=== PATIENT | male | born 1985 | race Hispanic/Latino ===

== ENCOUNTER 2016-11-06 11:18 | Emergency (ER) | payer SELFPAY ==
[2016-11-06 11:36] VITALS: BP 152/100; PULSE 73; RESP 19; TEMP 98.7; O2SAT 100; BMI 27.7
[2016-11-06] MEDS ORDERED: Oxycodone/Acetaminophen 5/325 mg Tab PO STA (11:52)
--- NOTE | 2016-11-06 11:54 | ED PDOC ---
Arrival/HPI - General Historian: Patient - General Chief Complaint: Abnormal Skin Integrity Time Seen by Provider: 11/06/16 11:51 - History of Present Illness Narrative History of Present Illness (Text): 11/06/16 11:53 31 y/o male, no pmh, nkda, last tetanus under 4 years ago, penicillin allergy, c /o lt. hand laceration s/p working on the car and tear by the high force wrench x 2 hours. Pt. stated that he was working on his car which the wrench hit back on him, sustained the laceration, didn't have the glove on either, able to move the lt. hand 5 digits without difficulty, no fever or chills, no numbness or tingling, no dizziness, no other medical or psychological complaints. (Stevenson Lawrence) Past Medical History - Provider Review Nursing Documentation Reviewed: Yes - Infectious Disease Hx of Infectious Diseases: None - Integumentary Hx Dermatological Disorder: Yes Other/Comment: hx of staph infection - Musculoskeletal/Rheumatological Hx Falls: No - Psychiatric Hx Depression: No Hx Emotional Abuse: No Hx Physical Abuse: No Hx Substance Use: No - Surgical History Hx Pulmonary Surgery: No - Anesthesia Hx Anesthesia: No - Suicidal Assessment Feels Threatened In Home Enviroment: No Family/Social History - Physician Review Nursing Documentation Reviewed: Yes Family/Social History: Unknown Family HX Smoking Status: Heavy Smoker > 10 Cigarettes Daily Hx Alcohol Use: Yes Frequency of alcohol use: Socially Hx Substance Use: No Hx Substance Use Treatment: No Allergies/Home Meds Allergies/Adverse Reactions: Allergies Penicillins Allergy (Verified 11/06/16 11:36) ANAPHYLAXIS Review of Systems - Review of Systems Constitutional: absent: Fatigue, Fevers Eyes: absent: Vision Changes ENT: absent: Hearing Changes Respiratory: absent: SOB, Cough Cardiovascular: absent: Chest Pain Gastrointestinal: absent: Abdominal Pain, Nausea, Vomiting Musculoskeletal: absent: Arthralgias, Back Pain, Neck Pain Skin: Laceration. absent: Rash, Pruritis, Skin Lesions, Abscess, Ulcer, Other Neurological: absent: Dizziness, Gait Changes, Speech Changes Physical Exam Vital Signs Reviewed: Yes Temperature: Afebrile Blood Pressure: Hypertensive Pulse: Regular Respiratory Rate: Normal Appearance: Positive for: Well-Appearing, Non-Toxic Pain Distress: Severe Mental Status: Positive for: Alert and Oriented X 3 - Systems Exam Head: Present: Atraumatic, Normocephalic Pupils: Present: PERRL Extroacular Muscles: Present: EOMI Conjunctiva: Present: Normal Mouth: Present: Moist Mucous Membranes Neck: Present: Normal Range of Motion Respiratory/Chest: Present: Clear to Auscultation, Good Air Exchange. No: Respiratory Distress, Accessory Muscle Use Cardiovascular: Present: Regular Rate and Rhythm, Normal S1, S2. No: Murmurs Abdomen: Present: Normal Bowel Sounds. No: Tenderness, Distention, Peritoneal Signs Back: Present: Normal Inspection Upper Extremity: Present: Normal Inspection, Other (Lt. hand: visible approx. 5cm intermediate to deep depth laceration noted on the 1st and 2nd webspace noted with oozing, FROM without limitation, sensation intact, motor 5/5, + radial pulse, capillary refill< 2 seconds, neurovascular intact, able to touch the lt. hand thumb to 2nd to 5th digits, able to have Full flexion and extension on the lt. hand thumb and lt. wrist without limitation. ). No: Cyanosis, Edema Lower Extremity: Present: Normal Inspection. No: Edema Neurological: Present: GCS=15, CN II-XII Intact, Speech Normal Skin: Present: Warm, Dry, Normal Color. No: Rashes Psychiatric: Present: Alert, Oriented x 3, Normal Insight, Normal Concentration Vital Signs Temp Pulse Resp BP Pulse Ox 11/06/16 11:36 98.7 F 73 19 152/100 H 100 Medical Decision Making ED Course and Treatment: I was available for consultation during PA evaluation. The chart was reviewed by me, and I agree with disposition. The documented history was done by the physician rn otolaryngology. The documented physical exam was done by the physician rn otolaryngology. The documented procedures were done by the physician rn otolaryngology. (Wes Loera) 11/06/16 11:54 -clindamycin/percocet -Lt. hand xray 11/06/16 14:40 -Lt. hand xray show negative study. -sensation intact, motor 5/5, wound irrigate with 2000cc of normal saline, clean with betadine, 1% lidocaine injected locally with 1.5cc with sterile procedure, 5-0 vicryl made 10 sutures due to the cut is intemediate and deep after the wound explore, 5-0 nylon made 19 sutures with good approximation, hemostasis obtained, bacitracin and gauze dressing, sensation intact, motor 5/5. -Discharge home with clindamycin, motrin, bacitracin oinment, keep the dressing dry and clean, follow up with your own pmd and and hand specialist within 2 days , sutures need to be removed by day 12-13, avoid strenuous exercise or activity , return to the ER for any new or worsening signs or symptoms. (Stevenson Lawrence) - RAD Interpretation Radiology Orders: 11/06/16 11:52 HAND LEFT 3 VIEWS ROUTINE [RAD] Stat negative study (Stevenson Lawrence) - Medication Orders Current Medication Orders: Discontinued Medications Clindamycin HCl (Cleocin) 300 mg PO STAT STA PRN Reason: Protocol Stop: 11/06/16 11:54 Last Admin: 11/06/16 12:00 Dose: 300 mg Lidocaine HCl (Lidocaine 1% (20ml)) Confirm Administered Dose 20 ml .ROUTE .STK- MED ONE Stop: 11/06/16 14:09 Oxycodone/Acetaminophen (Percocet 5/325 Mg Tab) 1 tab PO STAT STA Stop: 11/06/16 11:53 Last Admin: 11/06/16 12:00 Dose: 1 tab - PA / CONTROLLER OPERATIONS AND HR MANAGER / Resident Statement / has reviewed & agrees with the documentation as recorded. Disposition/Present on Arrival - Present on Arrival Any Indicators Present on Arrival: No History of DVT/PE: No History of Uncontrolled Diabetes: No Urinary Catheter: No History of Decub. Ulcer: No History Surgical Site Infection Following: None - Disposition Have Diagnosis and Disposition been Completed?: Yes Disposition Time: 11:54 Patient Plan: Discharge - Disposition Diagnosis: Hand laceration Disposition: HOME/ ROUTINE Condition: IMPROVED Additional Instructions: Discharge home with clindamycin, motrin, bacitracin oinment, keep the dressing dry and clean, follow up with your own pmd and and hand specialist within 2 days , sutures need to be removed by day 12-13, avoid strenuous exercise or activity , return to the ER for any new or worsening signs or symptoms. Prescriptions: Bacitracin Ointment [Bacitracin] 1 appful TOP BID #15 g Clindamycin [Cleocin] 300 mg PO TID #30 cap Ibuprofen [Motrin Tab] 600 mg PO QID PRN #30 tab PRN Reason: Other Referrals: PCP,NO [Primary Care Provider] - Follow up with primary Natividad Pena MD [Non-Staff] - Follow up with primary [facility] [place] [Outside] - Follow up with primary Forms: WORK NOTE
[2016-11-06] MEDS ORDERED: Lidocaine 1% Inj (20ml) ONE (14:08)
--- NOTE | 2016-11-06 14:33 | RAD ---
PROCEDURE: Left Hand Radiographs. HISTORY: lt. hand laceration COMPARISON: None. FINDINGS: BONES: Normal. No fracture. JOINTS: Normal. No osteoarthritic changes. SOFT TISSUES: No evidence of foreign body OTHER FINDINGS: None. IMPRESSION: Negative study
== END 2016-11-06 15:05 | disposition home or self-care (01) ==
LOC: ED 11:18
DX: S61.412A Laceration without foreign body of left hand, initial encounter (principal); W22.8XXA Striking against or struck by other objects, initial encounter; Y93.89 Activity, other specified; Y92.89 Other specified places as the place of occurrence of the external cause

== ENCOUNTER 2016-11-20 11:22 | Emergency (ER) | payer SELFPAY ==
[2016-11-20 11:23] VITALS: BMI 27.7
[2016-11-20 12:05] VITALS: BP 119/73; PULSE 68; RESP 18; TEMP 98.4; O2SAT 98
--- NOTE | 2016-11-20 12:05 | ED PDOC ---
Arrival/HPI - General Chief Complaint: Suture/Staple Removal Time Seen by Provider: 11/20/16 12:04 Historian: Patient - History of Present Illness Narrative History of Present Illness (Text): 11/20/16 21:24 31-year-old male presents today for suture removal to the left hand. Patient states 2 weeks ago he was seen in the emergency room after sustaining a laceration to the web spacing between the first and second finger of the hand by a wrench. Patient states he had laceration repaired and now presents today for removal. He denies pain. Denies weakness or tingling in the extremity. Patient states he does have slight decreased sensation in the left thumb. Patient states he took clindamycin as an antibiotic when the incident happened. Patient states he is a smoker. No other complaints Time/Duration: Other (14 days ago) Symptom Onset: Sudden Symptom Course: Resolved Quality: Other (no pain) Past Medical History - Provider Review Nursing Documentation Reviewed: Yes - Travel History Have you recently traveled outside [place] w/in the past 3 mons?: No - Infectious Disease Hx of Infectious Diseases: None - Tetanus Immunization Tetanus Immunization: Up to Date - Integumentary Hx Dermatological Disorder: Yes Other/Comment: hx of staph infection - Musculoskeletal/Rheumatological Hx Falls: No - Psychiatric Hx Depression: No Hx Emotional Abuse: No Hx Physical Abuse: No Hx Substance Use: No - Surgical History Hx Pulmonary Surgery: No - Anesthesia Hx Anesthesia: No - Suicidal Assessment Feels Threatened In Home Enviroment: No Family/Social History - Physician Review Nursing Documentation Reviewed: Yes Family/Social History: Unknown Family HX Smoking Status: Heavy Smoker > 10 Cigarettes Daily Hx Alcohol Use: Yes Hx Substance Use: No Hx Substance Use Treatment: No Allergies/Home Meds Allergies/Adverse Reactions: Allergies Penicillins Allergy (Verified 11/06/16 11:36) ANAPHYLAXIS Review of Systems - Review of Systems Constitutional: absent: Fatigue, Fevers Respiratory: absent: SOB, Cough Cardiovascular: absent: Chest Pain, Palpitations Gastrointestinal: absent: Abdominal Pain Genitourinary Male: absent: Dysuria Musculoskeletal: absent: Arthralgias Skin: Laceration. absent: Cellulitis Neurological: absent: Headache, Dizziness Physical Exam Vital Signs Reviewed: Yes Vital Signs Temp Pulse Resp BP Pulse Ox 11/20/16 12:04 98.4 F 68 18 119/73 98 Temperature: Afebrile Blood Pressure: Normal Pulse: Regular Respiratory Rate: Normal Appearance: Positive for: Well-Appearing, Non-Toxic, Comfortable Pain Distress: None Mental Status: Positive for: Alert and Oriented X 3 - Systems Exam Head: Present: Atraumatic Respiratory/Chest: Present: Clear to Auscultation Cardiovascular: Present: Regular Rate and Rhythm Upper Extremity: Present: Normal ROM, NORMAL PULSES, Capillary Refill < 2s, Other (there are 6 interrupted sutures and a long running sutures between the webspacing of the left 1st and 2nd fingers extending into the palm; no surrounding erythema or edema. no tenderness. ). No: Tenderness, Swelling, Erythema, Deformity Neurological: Present: Speech Normal Skin: Present: Warm, Dry Psychiatric: Present: Alert, Oriented x 3 Medical Decision Making ED Course and Treatment: 11/20/16 patient is nontoxic well-appearing no distress with stable vital signs presenting for suture removal 4 of the interrupted sutures were removed, 2 on each side of the laceration. There was slight wound dehiscence. The running suture remains in place Case was discussed in depth with Dr. Rutledge surgeon who is in charge of the wound care center. He states that the patient can follow-up in the wound care center tomorrow. I spoke with the rn appeals at the wound care center as scheduled the patient an appointment for 10 AM tomorrow at the wound care center for further evaluation. My concern is that if I remove the running suture this entire wound will dehisce. I will cover the patient with Bactrim. I discussed the plan and depth with the patient I stressed the importance of follow-up with the wound care center tomorrow at 10 AM. I've advised immediate return if symptoms worsen persist or if new concerning symptoms develop Patient verbalizes understanding of discharge instructions and need for immediate followup. all aspects of this case were discussed the attending of record. Impression: Suture removal, wound check, laceration hand Go to the Wound Center tomorrow at 10am. Take the B elevator to the 3rd floor; Keep the wound clean and dry Follow up with primary care physician within the next 2 days bactrim 1 tablet twice daily x 7 days. Return immediately if symptoms worsen persist or if new symptoms develop Disposition/Present on Arrival - Present on Arrival Any Indicators Present on Arrival: No History of DVT/PE: No History of Uncontrolled Diabetes: No Urinary Catheter: No History of Decub. Ulcer: No History Surgical Site Infection Following: None - Disposition Have Diagnosis and Disposition been Completed?: Yes Diagnosis: Visit for suture removal Disposition: HOME/ ROUTINE Disposition Time: 12:04 Patient Plan: Discharge Condition: GOOD Additional Instructions: Go to the Wound Center tomorrow at 10am. Take the B elevator to the 3rd floor; Keep the wound clean and dry Follow up with primary care physician within the next 2 days bactrim 1 tablet twice daily x 7 days. Return immediately if symptoms worsen persist or if new symptoms develop Prescriptions: Sulfamethoxazole/Trimethoprim [Bactrim DS 800 mg-160 mg] 1 tab PO BID #14 tab Referrals: Elvis Pace MD [Medical Doctor] - Follow up with primary [facility] [Outside] - Follow up with primary Velasquez Shearer MD [Staff Provider] - Follow up with primary Natividad Pena MD [Non-Staff] - Follow up with primary Forms: WORK NOTE
== END 2016-11-20 13:23 | disposition home or self-care (01) ==
LOC: ED 11:22
DX: Z48.02 Encounter for removal of sutures (principal)